=== PATIENT | female | born 1990 | race Caucasian/White ===

== ENCOUNTER 2018-01-13 20:24 | Outpatient (CLI) | payer MEDICAID ==
[~2018-01-13] VITALS: Ht 167.6 cm; Wt 54.0 kg
== END 2018-01-13 20:51 | disposition home or self-care (01) ==
LOC: LDOP 20:24
PROVIDERS: ATTEND Obstetrics & Gynecology
DX: O36.8130 Decreased fetal movements, third trimester, not applicable or unspecified (principal); Z3A.36 36 weeks gestation of pregnancy
CPT/HCPCS: 59025; 99201; G0463

== ENCOUNTER 2018-01-27 08:07 | Inpatient (IN) | payer MEDICAID ==
[~2018-01-27] VITALS: Ht 167.6 cm; Wt 56.4 kg
[2018-01-27 08:49] VITALS: BP 102/57
[2018-01-27 09:36] LABS: AMPHETAMINE SCREEN, URINE Negative (Negative); BARBITURATE SCREEN, URINE Negative (Negative); BENZODIAZEPINE SCREEN, URINE Negative (Negative); CANNABINOID SCREEN, URINE Positive (Negative); COCAINE SCREEN, URINE Negative (Negative); METHADONE SCREEN, URINE Negative (Negative); OPIATE SCREEN, URINE Negative (Negative)
[2018-01-27] MEDS ORDERED: OXYTOCIN 30U/ 0.9% NaCL 500ML 500 ML IV SCH (09:58)
[2018-01-27] MEDS ORDERED: LACTATED RINGERS 1,000 ML IV SCH ×3 (09:58→18:00)
[2018-01-27] MEDS ORDERED: LACTATED RINGERS 1,000 ML IVBOLUS ONE (10:00)
[2018-01-27] MEDS ORDERED: NEWBORN KIT ONE (10:25)
[2018-01-27] MEDS ORDERED: OXYTOCIN 30U/ 0.9% NaCL 500ML 500 ML ONE (10:25)
[2018-01-27] MEDS ORDERED: SODIUM CITRATE/CITRIC ACID 30 ML UDC ONE (10:25)
[2018-01-27 10:32] LABS: BASOPHILS # (AUTO) 0.05 x10^3/uL (0-0.1); BASOPHILS % (AUTO) 1 % (0-1); EOSINOPHILS # (AUTO) 0.19 x10^3/uL (0-0.4); EOSINOPHILS % (AUTO) 2 % (1-7); LYMPHOCYTES # (AUTO) 2.08 x10^3/uL (1-3.4); LYMPHOCYTES % (AUTO) 19 % (22-44); MD NO; MEAN CORPUSCULAR HEMOGLOBIN 32.6 pg (27.0-34.8); MEAN CORPUSCULAR HGB CONC 33.2 g/dL (32.4-35.8); MEAN CORPUSCULAR VOLUME 98.2 fL (80-100); MEAN PLATELET VOLUME 10.2 fL (7.4-10.4); MONOCYTES # (AUTO) 0.54 x10^3/uL (0.2-0.8); MONOCYTES % (AUTO) 5 % (2-9); NEUTROPHILS % (AUTO) 74 % (42-75); PLATELET COUNT 199 x10^3/uL (130-400); RED BLOOD COUNT 4.27 x10^6/uL (3.82-5.3); RED CELL DISTRIBUTION WIDTH 15.6 % (9.6-15.2)
[2018-01-27] MEDS ORDERED: OXYcodone 5 MG/5 ML ORAL.SOL UDC PO PRN (11:00)
[2018-01-27] MEDS ORDERED: MIDAZOLAM 1 MG/ML, 2ML IV PRN (11:00)
[2018-01-27] MEDS ORDERED: PROMETHAZINE 25 MG/ML, 1ML IV PRN (11:00)
[2018-01-27] MEDS ORDERED: hydrALAzine 20 MG/ML, 1ML IV PRN (11:00)
[2018-01-27] MEDS ORDERED: HYDROcodone/APAP 7.5-325MG/15ML UDC PO PRN (11:00)
[2018-01-27] MEDS ORDERED: LABETALOL 5MG/ML, 20ML IV PRN (11:00)
[2018-01-27] MEDS ORDERED: FENTANYL PF 100 MCG/2ML IV PRN (11:00)
[2018-01-27] MEDS ORDERED: EPHEDRINE 50 MG/ML, 1ML IVPush PRN (11:00)
[2018-01-27] MEDS ORDERED: ALBUTEROL SULFATE 2.5 MG/3 ML NPPB PRN (11:00)
[2018-01-27] MEDS ORDERED: HYDROmorphone 1 MG/ML, 1ML IV PRN (11:00)
[2018-01-27] MEDS ORDERED: MEPERIDINE/PF 25MG/0.5ML IVPush PRN (11:00)
[2018-01-27] MEDS ORDERED: ONDANSETRON 2MG/ML, 2ML IVPush PRN (11:00)
[2018-01-27] MEDS ORDERED: METOCLOPRAMIDE 5 MG/ML, 2ML ONE (11:03)
[2018-01-27] MEDS ORDERED: EPHEDRINE 50 MG/ML, 1ML ONE (11:10)
[2018-01-27] MEDS ORDERED: CEFAZOLIN 1,000 MG ONE (11:10)
[2018-01-27] MEDS ORDERED: DEXAMETHASONE 4 MG/ML, 1ML ONE (11:10)
[2018-01-27] MEDS ORDERED: PHENYLEPHRINE 10 MG/ML ONE (11:10)
[2018-01-27] MEDS ORDERED: OXYTOCIN 10 UNITS/ML, 1ML ONE (11:10)
[2018-01-27] MEDS ORDERED: ONDANSETRON 2MG/ML, 2ML ONE (11:10)
[2018-01-27] MEDS ORDERED: KETOROLAC 30 MG/1 ML ONE (11:10)
[2018-01-27] MEDS ORDERED: FENTANYL PF 100 MCG/2ML ONE (11:11)
[2018-01-27] MEDS ORDERED: METOCLOPRAMIDE 5 MG/ML, 2ML IV ONE (12:30)
[2018-01-27] MEDS ORDERED: SODIUM CITRATE/CITRIC ACID 30 ML UDC PO ONE (12:30)
[2018-01-27] MEDS: KETOROLAC 30 MG/1 ML IV PRN ×2 (13:30→19:46)
[2018-01-27] MEDS: OXYTOCIN 30U/ 0.9% NaCL 500ML 500 ML IV SCH ×2 (13:56→23:56)
[2018-01-27] MEDS ORDERED: MISOPROSTOL 200 MCG TABLET PO PRN (14:00)
[2018-01-27] MEDS ORDERED: morphine SULFATE 10 MG/ML, 1ML IVPush PRN (14:00)
[2018-01-27] MEDS ORDERED: ONDANSETRON 2MG/ML, 2ML IV PRN (14:00)
[2018-01-27] MEDS: LACTATED RINGERS 1,000 ML IV SCH ×2 (14:27→23:57)
[2018-01-27] MEDS ORDERED: ONDANSETRON ODT 4 MG PO PRN (14:30)
[2018-01-27] MEDS ORDERED: HYDROcodone/APAP 5/325 TABLET ONE (15:17)
[2018-01-27] MEDS: HYDROcodone/APAP 5/325 TABLET PO PRN ×3 (15:18→22:09)
[2018-01-27 16:20] VITALS: BP 111/66
[2018-01-27 19:30] VITALS: BP 93/58
[2018-01-27] MEDS: DOCUSATE 100 MG CAPSULE PO PRN (19:46)
[2018-01-27 22:24] LABS: BASOPHILS # (AUTO) 0.06 x10^3/uL (0-0.1); BASOPHILS % (AUTO) 0 % (0-1); EOSINOPHILS % (AUTO) 0 % (1-7); LYMPHOCYTES # (AUTO) 1.35 x10^3/uL (1-3.4); LYMPHOCYTES % (AUTO) 9 % (22-44); MD NO; MEAN CORPUSCULAR HEMOGLOBIN 32.8 pg (27.0-34.8); MEAN CORPUSCULAR HGB CONC 33.3 g/dL (32.4-35.8); MEAN CORPUSCULAR VOLUME 98.6 fL (80-100); MEAN PLATELET VOLUME 10.1 fL (7.4-10.4); MONOCYTES # (AUTO) 0.46 x10^3/uL (0.2-0.8); MONOCYTES % (AUTO) 3 % (2-9); NEUTROPHILS # (AUTO) 13.75 x10^3/uL (1.8-6.8); NEUTROPHILS % (AUTO) 88 % (42-75); PLATELET COUNT 178 x10^3/uL (130-400); RED BLOOD COUNT 3.64 x10^6/uL (3.82-5.3); RED CELL DISTRIBUTION WIDTH 15.3 % (9.6-15.2)
[2018-01-28 00:01] VITALS: BP 97/59
[2018-01-28] MEDS: HYDROcodone/APAP 5/325 TABLET PO PRN ×5 (01:47→21:16)
[2018-01-28] MEDS: KETOROLAC 30 MG/1 ML IV PRN ×2 (01:47→08:21)
[2018-01-28 07:35] VITALS: BP 100/68
[2018-01-28] MEDS: PRENATAL VIT/IRON/FA 1 EACH TABLET PO SCH (08:17)
[2018-01-28] MEDS: DOCUSATE 100 MG CAPSULE PO PRN ×2 (08:18→21:16)
[2018-01-28] MEDS: OXYTOCIN 30U/ 0.9% NaCL 500ML 500 ML IV SCH ×2 (09:56→19:56)
[2018-01-28] MEDS: LACTATED RINGERS 1,000 ML IV SCH ×2 (09:56→19:56)
[2018-01-28 12:30] VITALS: BP 98/63
[2018-01-28] MEDS: IBUPROFEN 600 MG TABLET PO PRN ×2 (16:34→22:40)
[2018-01-28 19:15] VITALS: BP 100/62
[2018-01-29] MEDS: HYDROcodone/APAP 5/325 TABLET PO PRN ×2 (03:24→07:40)
[2018-01-29] MEDS: LACTATED RINGERS 1,000 ML IV SCH (07:22)
[2018-01-29] MEDS: OXYTOCIN 30U/ 0.9% NaCL 500ML 500 ML IV SCH (07:22)
[2018-01-29 07:30] VITALS: BP 115/75
[2018-01-29] MEDS: IBUPROFEN 600 MG TABLET PO PRN (07:40)
[2018-01-29] MEDS: DOCUSATE 100 MG CAPSULE PO PRN (07:40)
[2018-01-29] MEDS: PRENATAL VIT/IRON/FA 1 EACH TABLET PO SCH (07:40)
[2018-01-29] MEDS ORDERED: IBUP-1222 PO (09:58)
[2018-01-29] MEDS ORDERED: HYDR-3240 PO (09:59)
== END 2018-01-29 11:28 | disposition home or self-care (01) | DRG 765 ==
LOC: LDOP 08:07 → LDIP 09:27 → 2NW 15:59
PROVIDERS: ADMIT Obstetrics & Gynecology; ATTEND Obstetrics & Gynecology
PROC: 10D00Z1 Extraction of Products of Conception, Low, Open Approach (ICD-10-PCS; principal; 2018-01-27)
PROC: 0UB70ZZ Excision of Bilateral Fallopian Tubes, Open Approach (ICD-10-PCS; 2018-01-27)
DX: O34.211 Maternal care for low transverse scar from previous cesarean delivery (principal); O36.5930 Maternal care for other known or suspected poor fetal growth, third trimester, not applicable or unspecified; Z37.0 Single live birth; O42.92 Full-term premature rupture of membranes, unspecified as to length of time between rupture and onset of labor; O69.81X0 Labor and delivery complicated by cord around neck, without compression, not applicable or unspecified; Z30.2 Encounter for sterilization; Z3A.37 37 weeks gestation of pregnancy; Z88.0 Allergy status to penicillin; Z88.8 Allergy status to other drugs, medicaments and biological substances
CPT/HCPCS: 36415; 80307; 84112; 85025; 86850; 86900; 87806; 88302; J0690; J1100; J1885; J2405; J3010; G0475; J2370; J2590; J2765; J7120